=== PATIENT | male | born 1950 | race Caucasian/White ===

== ENCOUNTER 2017-01-22 09:05 | Emergency (ER) | payer MEDICARE, BC ==
[2017-01-22 09:15] VITALS: BP 143/78
--- NOTE | 2017-01-22 10:04 | ED ---
Lower Extremity - HPI Summary HPI Summary: Pt here w/ Lt foot and ankle swelling x 2 days since traveling - flew from [facility] to [place] then drove here from [place] 4 days ago. LAst night Lt foot was red, hot, swollen and painful. Swelling improved this morning after elevating all night and redness, pain improved after taking ibuprofen this morning. He was seen at and sent here for r/o DVT. He has a h/o neuropathy in this LE d/t B12 deficiency. - History of Current Complaint Chief Complaint: EDExtremityLower Stated Complaint: POSSIBLE BLOOD CLOT IN LEFT FOOT Time Seen by Provider: 01/22/17 09:34 Pain Intensity: 2 - Allergies/Home Medications Allergies/Adverse Reactions: Allergies Allergy/AdvReac Type Severity Reaction Status Date / Time Codeine Allergy Severe See Comment Verified 01/22/17 09:14 Shellfish Allergy Allergy Severe Anaphylatic Verified 01/22/17 09:14 Shock PMH/Surg Hx/FS Hx/Imm Hx Infectious Disease History: No Infectious Disease History: Denies: Traveled Outside the [place] in Last 30 Days Physical Exam Vital Signs On Initial Exam: Initial Vitals Temp Pulse Resp BP Pulse Ox 97.4 F 67 16 143/78 97 01/22/17 09:09 01/22/17 09:09 01/22/17 09:09 01/22/17 09:09 01/22/17 09:09 Diagnostics - Vital Signs Vital Signs Temp Pulse Resp BP Pulse Ox 01/22/17 09:09 97.4 F 67 16 143/78 97 - Laboratory Lab Statement: Any lab studies that have been ordered have been reviewed, and results considered in the medical decision making process. Lower Extremity Course/Dx - Course Course Of Treatment: DVT, vs cellulitis., gout, swelling 2ndry to traverl w/ peripheral neuropathuy
--- NOTE | 2017-01-22 10:44 | RAD ---
Indication: Left leg edema. Duplex Doppler sonography of the deep venous system of the left lower extremity deep venous system was performed. Bilaterally the common femoral veins appear patent and compressible. Left proximal greater saphenous vein, proximal deep femoral vein, femoral vein, popliteal vein, posterior tibial veins and peroneal veins appear patent and compressible. IMPRESSION: NO EVIDENCE OF DEEP VENOUS THROMBOSIS IS IDENTIFIED.
--- NOTE | 2017-01-22 11:24 | PN ---
Progress Note - Progress Note Date of Service: 01/22/17 Note: Signed out from Val Jamison PA-C at 10:30am. Discussed with patient results of US. Negative DVT. He endorses swelling, but notes that is common for him during his travels. He is currently traveling around [facility] and hasn't walked much since being in a car. He denies erythema, warmth or red streaking at this time, but states those particular symptoms return at night. He was most concerned with a DVT, but has hx of cellulitis and is concerned with the swelling representing an early sign. Discussed with patient antibiotics risks and benefits. Patient requests antibiotics and will choose to use them if symptoms return and/or worsen. Upon discharge, it was noticed labs were not drawn on the individual. Discussed with patient the benefits of lab work, but he declines. Denies hx of gout and currently is afebrile with no sweats or chills. Will discharge him without labs drawn but return precautions given. Keflex prescribed for symptom development. He is OK with plan and discharge.
== END 2017-01-22 11:23 | disposition home or self-care (01) ==
LOC: ED 09:05
DX: R60.0 Localized edema (principal); M25.472 Effusion, left ankle; G62.9 Polyneuropathy, unspecified; E53.8 Deficiency of other specified B group vitamins
CPT/HCPCS: 99282